=== PATIENT | male | born 1955 | race Caucasian/White ===

== ENCOUNTER → 2018-11-23 | Outpatient (CLI) | payer MEDICARE ==
--- NOTE | 2018-11-23 21:00 | MRI ---
EXAM DESCRIPTION: Lumbar Spine w/o Contrast : Magnetic Resonance Imaging. CLINICAL HISTORY: JOINT PAIN COMPARISON: LUMBAR TECHNIQUE: Multiplanar, multiple standard sequences, non contrast MRI, lumbar spine. FINDINGS: L5-S1: Normal signal in the disc and disc space preserved. No posterior bulge. Minimal facet arthrosis and hypertrophy of the flavum ligaments more right than left. Right foraminal stenosis and moderate left foraminal narrowing. No canal narrowing. Circumscribed hyperintense T1 and T2 signal in the L5 vertebral body, consistent with a hemangioma. L4-5: Disc desiccation and moderate disc space loss more left than right. Modic type II endplate reactive changes to the left of midline. Posterior disc osteophyte bulge in the midline into the left of midline. AP canal diameter 6 mm. Moderate left foraminal stenosis. 2 mm grade 1 anterolisthesis. Mild right foraminal stenosis. Bilateral flavum ligament hypertrophy and facet arthrosis more hypertrophy on the right. Bilateral subarticular recess narrowing more on the left. L3-4: Significant disc space loss diffusely with right Modic type I endplate reactive changes.. Disc spur complex encroaches on the right foramen with mild stenosis. Left side Modic type III endplate reactive changes. Disc spur complex encroaching on the foramen with borderline stenosis. Posterior midline disc spur complex encroaching on the thecal sac. Bilateral facet degenerative hypertrophy more on the left. Bilateral flavum ligament hypertrophy. AP canal diameter 7 mm. Marrow edema in the right L3 pedicle. L2-3: Significant disc space loss and 4 mm retrolisthesis. Posterior midline disc osteophyte bulge slightly more to the right of midline. Mild flavum ligament hypertrophy and facet arthrosis with AP canal diameter 10 mm. Right side Modic type III endplate reactive changes with disc osteophyte bulge into the foramina abutting the right L2 nerve with moderate narrowing. Disc bulge into the left foramen with moderate foraminal narrowing. Anterior disc bulge and spurs with midline Modic type I endplate reactive changes. L1-2: Anterior disc bulge and endplate spurs. Moderate Disc space loss, more to the right of midline. Schmorl's nodes superior and inferior endplate. Moderate narrowing of the foramen. Minimal facet arthrosis and ligament hypertrophy with canal patent. Tiny posterior midline disc bulge and trace retrolisthesis. Circumscribed hyperintense T1 and T2 signal in the inferior mid L1 vertebral body consistent with a hemangioma. T12-L1: Minimal disc desiccation with disc space preserved with no bulging. Schmorl's nodes superior L1 vertebral body. Canal and bilateral foramina are patent. T11- L3 levoscoliosis. Paravertebral soft tissues posterior paraspinal muscle atrophy.. Otherwise normal marrow signal in the remaining vertebral bodies and the posterior elements. Vertebral bodies are not compressed at any level. IMPRESSION: 1. Multiple levels of facet arthrosis and ligament hypertrophy, bulging discs associated with osteophytes or spurs, and spondylosis. Unilaterally or bilaterally. 2. Right foraminal stenosis at L5-S1 by disc spur complex. Correlate for right L5 radiculopathy. 3. Spondylosis L4-5 disc bulge and osteophytes in the canal. Posterior elements hypertrophy. Multifactorial L4-5 canal stenosis. Left subarticular recess stenosis could be causing left L5 impingement. Bilateral foraminal disc osteophyte impingement, correlate for bilateral L4 radiculopathy. 4. Right spondylosis at L3-4 with foraminal stenosis. Correlate for right L3 radiculopathy. Borderline stenosis on the left. Correlate for left L3 radiculopathy. Possible stress injury in the right L3 pedicle. Multifactorial stenosis with bilateral subarticular recess narrowing. 5. Advanced spondylosis and L2-3 disc space loss. Borderline mild central canal stenosis. Advanced spondylosis to the right of midline encroaching on the foramen and abutting the right L2 nerve. Correlate for right L3 radiculopathy. Moderate left foraminal narrowing.. Narrowing or stenosis of the left subarticular recess, correlate for left L3 radiculopathy. 6. Moderate disc space loss at L1 to more to the right of midline. Tiny posterior midline bulge and trace retrolisthesis. Mild central canal narrowing. Hemangioma in the mid L1 vertebral body. Electronically signed by: Mike Armando MD 11/23/2018 8:59 PM [facility]
== END ==
LOC: MRI 12:53
PROVIDERS: ATTEND Family Medicine
DX: M54.16 Radiculopathy, lumbar region (principal); M48.07 Spinal stenosis, lumbosacral region; M47.896 Other spondylosis, lumbar region

== ENCOUNTER → 2019-09-02 | Outpatient (CLI) | payer MEDICARE, OTHER ==
--- NOTE | 2019-09-05 09:08 | CT ---
Procedure: CT LUNG SCREENING Exam Date: 09/02/2019. Ordering Provider: Yuan Perez Clinical Indication: HISTORY OF TOBACCO USE . Current cigarette smoker. 90 pack-years. This patient meets eligibility criteria for low-dose CT lung cancer screening. Comparison: Chest x-ray June 01, 2019. Technique: Using a multislice scanner, sequential helical axial imaging was obtained in the thorax, 2.5 mm thickness, 2.5 mm separation, from the level of the thoracic inlet through the lung bases without IV contrast. A low dose protocol was utilized for BMI less than 30: BMI: 28.2. CTDI: 1.76 mGy. 120. kVp. 45 mA. DLP: 65.1 mGy-centimeters. 2D sagittal and coronal reconstructed images, 6.0 mm thickness, were obtained. This exam was performed according to our departmental dose optimization program which includes use of automated exposure control, adjustment of the mA and/or kV according to patient size and/or use of iterative reconstruction technique. Nodule measurements under 10 mm are given as mean value of 3 axes diameters. FINDINGS: Lungs and large airways: Pleural parenchymal scarring in the inferior right middle lobe and in the inferior lingula. Also in the left lower lobe. No abnormal nodules, no masses. No focal infiltrates. Minimal left side posterior dependent atelectasis. Pleura and space: No pleural effusion or pneumothorax. Mediastinum and yannick: evaluation limited by low dose technique and lack of IV contrast. Small nodes no dominant soft tissue masses. Heart and great vessels: Atherosclerotic calcification in the aorta and coronary artery calcifications. Chest wall, lower neck, axillae: Evaluation also limited by same factors as described above. Bilateral axillary lymph nodes. Upper abdomen: Evaluation limited by low-dose technique. Spleen and adrenal glands normal size and density. No free fluid or free air in the included peritoneal space. Stomach distended by food. Surgical clips in the gallbladder fossa with no fluid. Osseous structures: Evaluation limited by low dose MIP technique. Spondylosis in the thoracic spine and in these lower cervical spine. No lytic or blastic lesions. IMPRESSION: 1. Chronic densities in the lungs consistent with cigarette smoking history. No abnormal nodules and no masses. No focal infiltrates.. [facility] Best Practice Recommendations: please see below for Lung RADS category and FOLLOW-UP.* *Lung RADS category Category 1 - No nodule or definitely benign nodules (probability of malignancy less than 1%). Follow-up: Continue annual screening with Low Dose Chest CT in 12 months. Electronically signed by: Mike Armando MD 09/05/2019 9:06 AM CDT
== END ==
LOC: CT 15:00
PROVIDERS: ATTEND Family Medicine
DX: Z87.891 Personal history of nicotine dependence (principal); R91.8 Other nonspecific abnormal finding of lung field

== ENCOUNTER → 2020-04-23 | Outpatient (CLI) | payer MEDICARE | LOC: GMAM 11:45 | PROVIDERS: ATTEND Family Medicine | DX: Z12.5 Encounter for screening for malignant neoplasm of prostate (principal) ==